=== PATIENT | female | born 1990 | race Caucasian/White ===

== ENCOUNTER → 2016-11-29 | Outpatient (CLI) | payer OTHER ==
[~2016-11-29] MED LIST: PRENTAB26 PO
== END | disposition home or self-care (01) ==
LOC: C.PAPS 08:07
PROVIDERS: ATTEND Obstetrics & Gynecology
DX: O09.291 Supervision of pregnancy with other poor reproductive or obstetric history, first trimester (principal); Z3A.00 Weeks of gestation of pregnancy not specified

== ENCOUNTER → 2016-11-29 | Outpatient (CLI) | payer OTHER ==
[2016-11-29 18:28] LABS: URINE APPEARANCE CLEAR (CLEAR); URINE BILIRUBIN NEG (NEG); URINE COLOR YELLOW; URINE NITRITE NEG (NEG); URINE PH 5.5 (4.5-7.5); UROBILINOGEN NEG (NEG)
[2016-11-29 18:36] LABS: MANUAL MICROSCOPIC REQUIRED? NO; REVIEW REQ? NO
[2016-12-01 13:09] LABS: CHLAMYDIA TRACH RNA*** NOT DETECTED (NOT DETECTED); GC (NEIS GONORRHOEAE)RNA** NOT DETECTED (NOT DETECTED)
== END | disposition home or self-care (01) ==
LOC: C.LABSPEC 16:56
PROVIDERS: ATTEND Obstetrics & Gynecology
DX: O09.299 Supervision of pregnancy with other poor reproductive or obstetric history, unspecified trimester (principal)

== ENCOUNTER 2016-12-22 23:49 | Emergency (ER) | payer OTHER ==
[~2016-12-22] VITALS: Ht 176.5 cm; Wt 66.0 kg
[2016-12-22 23:54] VITALS: TEMP 37.1; Ht 176.5 cm; Wt 66.0 kg
[2016-12-23] MEDS ORDERED: PRENTAB26 PO (00:28)
--- NOTE | 2016-12-23 01:19 | EMERGENCY ROOM VISIT NOTE ---
History Report prepared by Nadja: Marlin Hudson Under the Supervision of: Dr. Lamine Robbins D.O. First contact with patient: 00:00 Chief Complaint: LEG PAIN,LEG INJURY Stated Complaint: RIGHT LEG PAIN CLOT CONCERN,SHORTNESS OF BREATH History of Present Illness The patient is a 26 year old female who presents to the Emergency Room with complaints of waxing and waning right thigh pain for the past couple of hours. The patient woke from sleep tonight with a sudden onset of sharp pain in her right thigh. She rates her pain as a 2/10 in severity. The patient is 13 weeks . This is her 4th . She called her PCP with her symptoms tonight and was advised to come to the ED to rule out a blood clot. The patient also reports recent cold symptoms. She notes cough, sore throat, ear pain, and slight shortness of breath. She has a history of asthma. Her son is sick with similar cold symptoms. The patient denies fever, chills, and calf pain. She has not had problems with varicose veins with past pregnancies. 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 A total of 10 systems reviewed and were otherwise negative. Past Medical & Surgical Medical Problems: (1) Asthma (2) No significant active problems Family History Blood clots Social History Smoking Status: Never Smoker Smokeless Tobacco Use: No Alcohol Use: none Drug Use: none Marital Status: Housing Status: lives with family Current/Historical Medications Scheduled Multivit/Min/Iron/Fol Ac/Pren ( Vitamin), 1 TAB PO DAILY Allergies Coded Allergies: Amoxicillin (Unverified Allergy, Unknown, nausea/vomiting/diarrhea, ) Clavulanic Acid (Unverified Allergy, Unknown, nausea/vomiting/diarrhea, 08/29) Physical Exam Vital Signs Date Time Temp Pulse Resp B/P Pulse Ox O2 Delivery O2 Flow Rate FiO2 12/23/16 01:40 83 18 105/66 98 Room Air 12/22/16 23:54 37.1 99 18 115/73 100 Room Air Physical Exam GENERAL: Patient is awake, alert, mildly anxious but overall comfortable. EYES: The conjunctivae are clear. The pupils are round and reactive. EARS, NOSE, MOUTH AND THROAT: The nose is without any evidence of any deformity. Mucous membranes are moist tongue is midline NECK: The neck is nontender and supple. RESPIRATORY: Normal respiratory effort is noted there is no evidence of wheezing rhonchi or rales CARDIOVASCULAR: Regular rate and rhythm noted there no murmurs rubs or gallops normal S1 normal S2 GASTROINTESTINAL: The abdomen is soft. Bowel sounds are present in all quadrants. Abdomen is nontender MUSCULOSKELETAL/EXTREMITIES: There is no evidence of gross deformity full range of motion is noted in the hips and shoulders SKIN: There is no obvious evidence of any rash. There was palpable tenderness in the medial posterior right thigh, there was no calf tenderness, pulse symmetric, skin warm and dry. NEUROLOGIC: Patient is awake alert and oriented x3 Medical Decision & Procedures ED Course 0000: The patient was evaluated in room B9. A complete history and physical examination were performed. 0105: I reassessed the patient at this time. She is doing well. She is still waiting to get her ultrasound. I answered all of her questions. 0130: The patient was signed out to Dr. Gates at the change of shift. Medical Decision Differential diagnosis: Etiologies such as DVT, musculoskeletal, infection, joint effusion, trauma, lymphedema, idiopathic, CHF, as well as others were entertained.. Nursing notes reviewed. The patient is a 26-year-old female who presented to the emergency department for an evaluation of right lower extremity pain. The patient has right posterior thigh pain. She was concerned that this could be consistent with a DVT because she is currently 13 weeks . I discussed the diagnosis of a DVT to the patient at this time I feel this could be more consistent with a superficial thrombophlebitis. Dopplers ordered but was not returned at the time of and of shift. The patient was signed out to Dr. Gates at change of shift. Please see her note for final disposition and plan as well as ultrasound report. Impression Primary Impression: Right thigh pain Scribe Attestation The scribe's documentation has been prepared under my direction and personally reviewed by me in its entirety. I confirm that the note above accurately reflects all work, treatment, procedures, and medical decision making performed by me. Departure Information Dispostion Still a Patient Referrals No Doctor, Assigned (PCP) Patient Instructions [facility]
[2016-12-23 01:40] VITALS: BP 105/66; PULSE 83; O2SAT 98
--- NOTE | 2016-12-23 02:17 | EMERGENCY ROOM VISIT NOTE ---
ED Visit Note First contact with patient: 01:55 This case was signed out to me at change of shift awaiting ultrasound of the lower extremity to rule out DVT. Stat rad interpreted the ultrasound as negative for DVT. I reviewed the results with the patient. She had provided a urine specimen. This was dipped negative. I have encouraged patient to follow-up with her PCP and/or OB if she has any worsening lower extremity pain or swelling.
--- NOTE | 2016-12-23 06:37 | DIAGNOSTIC IMAGING REPORT ---
BILATERAL LOWER EXTREMITY VENOUS DOPPLER HISTORY: Pain. Edema. pain and swelling, COMPARISON STUDY: None. FINDINGS: There is normal compressibility, flow, and augmentation within the bilateral lower extremity deep venous systems. IMPRESSION: No DVT within the right or left lower extremity. Electronically signed by: Chung Rinaldi M.D. 12/23/2016 6:35 AM Dictated Date/Time: 12/23/2016 6:35 AM
== END 2016-12-23 02:14 | disposition home or self-care (01) ==
LOC: C.EDB 23:51
DX: O26.891 Other specified pregnancy related conditions, first trimester (principal); O99.511 Diseases of the respiratory system complicating pregnancy, first trimester; M79.651 Pain in right thigh; J45.909 Unspecified asthma, uncomplicated; Z3A.13 13 weeks gestation of pregnancy

== ENCOUNTER → 2016-12-29 | Outpatient (CLI) | payer OTHER ==
[2016-12-29 11:10] LABS: BASO % 0.1 %; BASO ABS # 0.01 K/uL (0-0.2); COMPLETE YES; EOS % 1.3 %; HEMATOCRIT 33.3 % (37-47); IG% 0.2 %; LYMPH % 16.9 %; LYMPH ABS # 1.68 K/uL (1.2-3.4); MEAN CELL VOLUME 79.7 fL (80-100); MEAN CORPUSCULAR HEMOGLOBIN 27.5 pg (25-34); MEAN CORPUSCULAR HGB CONC 34.5 g/dl (32-36); MEAN PLATELET VOLUME 11.2 fL (7.4-10.4); MONO % 5.4 %; NEUT % 76.1 %; PLATELET COUNT 202 K/uL (130-400); RED BLOOD COUNT 4.18 M/uL (4.2-5.4); WHITE BLOOD COUNT 9.92 K/uL (4.8-10.8)
[2016-12-29 11:23] LABS: POTASSIUM 3.8 mmol/L (3.5-5.1)
[2016-12-29 11:42] LABS: THYROID STIMULATING HORMONE 1.12 uIu/ml (0.300-4.500)
== END | disposition home or self-care (01) ==
LOC: C.LAB 09:23
PROVIDERS: ATTEND Obstetrics & Gynecology
DX: O09.299 Supervision of pregnancy with other poor reproductive or obstetric history, unspecified trimester (principal); Z3A.00 Weeks of gestation of pregnancy not specified; R00.2 Palpitations

== ENCOUNTER 2017-04-03 10:48 | Outpatient (CLI) | payer OTHER ==
--- NOTE | 2017-04-03 11:50 | DIAGNOSTIC IMAGING REPORT ---
LIMITED (US) CLINICAL HISTORY: ABDOMINAL PAIN AT 27 WEEKS COMPARISON STUDY: None. FINDINGS: There is a normal-appearing posterior placenta. No evidence for subchorionic hematoma. Normal amniotic fluid volume. heart rate was 164 bpm. Cervix is not well visualized due to artifact from the overlapping fetus. However, the cervix appears closed and measures up to 4.2 cm in length. The fetus is in a breech presentation. IMPRESSION: 1. Normal-appearing posterior placenta. 2. heart rate was 164 bpm. 3. The cervix was not well visualized due to artifact from the overlapping fetus. However, the cervix is likely closed and measures approximately 4.2 cm in length. Electronically signed by: René Diallo M.D. 04/03/2017 11:49 AM Dictated Date/Time: 04/03/2017 11:46 AM
[2017-04-03 12:36] LABS: HEMATOCRIT 31.6 % (37-47); MEAN CELL VOLUME 83.2 fL (80-100); MEAN CORPUSCULAR HEMOGLOBIN 27.4 pg (25-34); MEAN CORPUSCULAR HGB CONC 32.9 g/dl (32-36); PLATELET COUNT 219 K/uL (130-400); WHITE BLOOD COUNT 12.69 K/uL (4.8-10.8)
--- NOTE | 2017-04-03 13:28 | Progress Note ---
Progress Note Date of Service April 03, 2017. Progress Note Outpatient Note 27 F P1021 at 27.3 weeks with vague abdominal cramps that started o last week. She describes pain in one area of midepigastric area which is painful to touch. Denies any leakage of fluid, spotting or bleeding. No contractions or abdominal tightness. No nausea or vomiting. Normal bowel movements. Has history of abruption at 34 weeks with last that was diagnosed by ultrasound. Found to have 25 % abruption at per patient. Denies any dysuria, frequency or hematuria. Denies headaches. She is planning on moving this Monday to [place] where she had her last delivery. She denies any trauma to abdomen or any recent falls. Does pickle cutter her son and has been more active recently. She is eating OK. No recent nosebleeds or any bruising. Was seen in [place] 2 weeks ago for similar complaints and discharged home after ultrasound. Ultrasound today shows fetus to be breech and posterior placenta. Cervix noted to be closed and no evidence of an abruption. Last 24 Hours Test 04/03/17 11:45 White Blood Count 12.69 K/uL Red Blood Count 3.80 M/uL Hemoglobin 10.4 g/dL Hematocrit 31.6 % Mean Corpuscular Volume 83.2 fL Mean Corpuscular Hemoglobin 27.4 pg Mean Corpuscular Hemoglobin Concent 32.9 g/dl RDW Standard Deviation 42.7 fL RDW Coefficient of Variation 14.1 % Platelet Count 219 K/uL Mean Platelet Volume 10.0 fL Nucleated RBC Absolute Count (auto) 0.02 K/uL Nucleated Red Blood Cells % 0.1 % and labs all wnl. EXAM: T Cat 1. No contractions on monitor Extremities without any tenderness or edema. Abdomen is gravid and soft. No pain on palpation noted. Will observe for any change.
--- NOTE | 2017-04-03 15:46 | Progress Note ---
Progress Note Date of Service April 03, 2017. Progress Note I re-evaluated patient and now has less pain. No pain with palpation over spot where she noted pain previously. T Cat 1. Will discharge to home. instructions given to return if any bleeding or pain.
== END 2017-04-03 15:55 | disposition home or self-care (01) ==
LOC: C.OPB 10:48 → C.LD 10:48 → C.OPB 15:55
PROVIDERS: ATTEND Obstetrics & Gynecology
DX: Z34.83 Encounter for supervision of other normal pregnancy, third trimester (principal); O32.1XX0 Maternal care for breech presentation, not applicable or unspecified; Z3A.27 27 weeks gestation of pregnancy